=== PATIENT | female | born 1970 | race Caucasian/White ===

== ENCOUNTER 2024-11-03 16:42 | Emergency (ER) | payer OTHER ==
[~2024-11-03] VITALS: Ht 165.1 cm; Wt 54.5 kg
[~2024-11-03 16:42] MED LIST: ALBU18HF12 IH; DIPH-1130 PO; FLUO-341 PO; FLUT1AER4 IH; FURO80TA3 PO; LIDO5CRE TP; NICO-803 TD; ONDA-104 PO; PANT-31 PO; SEVE800T38 PO
[2024-11-03 17:01] VITALS: BP 116/63; PULSE 86; RESP 18; TEMP 98.6; O2SAT 97
== END 2024-11-03 19:59 | disposition left against medical advice (07) ==
LOC: EMS 17:19
DX: R10.30 Lower abdominal pain, unspecified (principal); Z53.21 Procedure and treatment not carried out due to patient leaving prior to being seen by health care provider
CPT/HCPCS: 93005